=== PATIENT | female | born 1945 | race Caucasian/White ===

== ENCOUNTER → 2019-04-05 10:23 | Outpatient (CLI) | payer MEDICARE, SELFPAY ==
[2015-09-26 11:33] VITALS: BMI 45.8
[2019-04-05 11:25] LABS: Amphetamine Urine VISTA NEGATIVE (<1000 ng/mL); Barbiturate Urine VISTA NEGATIVE (< 200 ng/mL); Benzodiazepine Urine VISTA NEGATIVE (< 200 ng/mL); Cocaine Urine VISTA NEGATIVE (< 300 ng/mL); Ecstacy Urine VISTA NEGATIVE (< 500 ng/mL); Methadone Urine VISTA NEGATIVE (< 300 ng/mL); PCP Urine VISTA NEGATIVE (< 25 ng/mL); THC Urine VISTA NEGATIVE (< 50 ng/mL); Vista UDS pH Range 6
== END ==
PROVIDERS: Family Provider Internal Medicine; PCP Internal Medicine; Referring Provider Anesthesiology Pain Medicine; Visit Provider Anesthesiology Pain Medicine
DX: F11.20 Opioid dependence, uncomplicated (principal)
CPT/HCPCS: 80307

== ENCOUNTER 2019-11-30 12:15 | Outpatient (RCR) | payer MEDICARE, SELFPAY ==
[2019-11-30 13:35] VITALS: BP 117/60; PULSE 75; RESP 18; TEMP 36.5; BMI 42.3
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
== END 2019-11-30 23:59 ==
LOC: WC 12:15
PROVIDERS: Family Provider Internal Medicine; PCP Internal Medicine; Visit Provider Podiatrist
DX: E11.622 Type 2 diabetes mellitus with other skin ulcer (principal); L97.812 Non-pressure chronic ulcer of other part of right lower leg with fat layer exposed; E11.42 Type 2 diabetes mellitus with diabetic polyneuropathy; R60.0 Localized edema; I87.2 Venous insufficiency (chronic) (peripheral); E11.51 Type 2 diabetes mellitus with diabetic peripheral angiopathy without gangrene; Z79.4 Long term (current) use of insulin; Z79.899 Other long term (current) drug therapy
CPT/HCPCS: 11042; 11045; 99213; G0463

== ENCOUNTER 2019-12-29 10:30 | Outpatient (RCR) | payer MEDICARE, SELFPAY ==
[2019-12-01 01:10] VITALS: BP 117/60; PULSE 75; RESP 18; TEMP 36.5
--- NOTE | 2019-12-08 07:49 | VDLE_ITS ---
Reason For Study: Leg wound RIGHT LEFT CFV is compressible, spontaneous, phasic, CFV is compressible, spontaneous, phasic, competent and demonstrates normal competent, and demonstrates normal augmentation. augmentation. FV is compressible, spontaneous, phasic, FV is compressible, spontaneous, phasic, competent and demonstrates normal competent and demonstrates normal augmentation. augmentation. POP V is compressible, spontaneous, phasic, POP V is compressible, spontaneous, phasic, competent and demonstrates normal competent and demonstrates normal augmentation. augmentation. T/P Trunk is compressible. T/P Trunk is compressible. Unable to visualize calf veins due to open PTV is compressible. wounds and bandages. LT PerV is compressible. Unable to check competence in GSV below knee SFJ is INCOMPETENT and measures 0.66 x 0.78 and SSV. cm. SFJ is competent and measures 0.84 x 0.83 cm. GSV proximal thigh measures 0.73 x 0.84 cm. GSV proximal thigh measures 0.79 x 0.82 cm. GSV at knee measures 0.50 x 0.56 cm. GSV at knee measures 0.48 x 0.49 cm. GSV is competent throughout. Procedure SSV proximal calf is INCOMPETENT for greater Exam performed in department. than 0.5 seconds and measures 0.16 x 0.20 cm. A preliminary report was called and/or faxed to . Interpretation Summary Deep veins of the lower extremities are bilaterally patent and compressible segmentally. There is no evidence of deep vein thrombosis on either side. Valvular competence appears intact within the proximal deep venous systems bilaterally. The deep veins in the right calf were not visualized due to the presence of wounds and bandages. The right sapheno-femoral junction is competent . The left sapheno-femoral junction is incompetent . The right great saphenous vein appears patent and competent above the knee, but was not visualized below the knee due to bandages. The left great saphenous vein is patent and competent segmentally. The right small saphenous vein was not visualized due to the presence of bandages. The left small saphenous vein is patent and incompetent. Ordering Physician: Shellie Owusu Referring Physician: Tio Mahoney Performed By: Elda Callejas RVT
--- NOTE | 2019-12-08 07:49 | ART_ITS ---
Reason For Study: Leg wound Procedure A bilateral lower extremity continuous wave Doppler with analog waveform analysis,segmental pressures,and ankle brachial indexes without exercise. Left Segmental Pressures Left posterior tibial artery = 142mmHg. Left dorsalis pedis artery = 140mmHg. Left digit = 97 mmHg. The left dorsalis pedis waveforms are triphasic. The left posterior tibial artery waveforms are triphasic. Right Segmental Pressures Right brachial= 139mmHg. Right posterior tibial artery = 138mmHg. Right dorsalis pedis artery = 141mmHg. Right digit = 105 mmHg. The right dorsalis pedis waveforms are triphasic. The right posterior tibial artery waveforms are triphasic. Indices The right ankle brachial index by the dorsalis pedis is 1.01. The right ankle brachial index by the posterior tibial artery is 0.99. The right digital-brachial index is 0.76. The left ankle brachial index by the dorsalis pedis is 1.01. The left ankle brachial index by the posterior tibial artery is 1.02. The left digital-brachial index is 0.70. Interpretation Summary Triphasic Doppler waveforms are noted at ankle level bilaterally. Pulse-volume recordings appear satisfactory at all levels bilaterally. Resting ankle-brachial indices are normal bilaterally. The right digital-brachial index is normal. The left digital-brachial index is low-normal. There is no evidence of significant arterial occlusive disease in the lower extremities bilaterally. Ordering Physician: Shellie Owusu Referring Physician: Tio Mahoney Performed By: Elda Callejas RVT
[2019-12-08 09:33] VITALS: BP 121/94; RESP 18; TEMP 36.9; BMI 42.3
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
[2019-12-15 10:31] VITALS: BP 98/52; PULSE 78; RESP 18; TEMP 36.3; BMI 42.3
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
[2019-12-22 10:55] VITALS: BP 99/43; PULSE 67; RESP 16; TEMP 36.9; BMI 42.3
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
[2019-12-29 10:36] VITALS: BP 130/60; PULSE 88; RESP 18; TEMP 36.3; BMI 42.3
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
== END 2019-12-31 23:59 ==
LOC: WC 10:30
PROVIDERS: Family Provider Internal Medicine; PCP Internal Medicine; Referring Provider Podiatrist; Visit Provider Podiatrist
DX: E11.622 Type 2 diabetes mellitus with other skin ulcer (principal); E11.51 Type 2 diabetes mellitus with diabetic peripheral angiopathy without gangrene; L97.812 Non-pressure chronic ulcer of other part of right lower leg with fat layer exposed; R60.0 Localized edema; E11.42 Type 2 diabetes mellitus with diabetic polyneuropathy; E11.610 Type 2 diabetes mellitus with diabetic neuropathic arthropathy
CPT/HCPCS: 11042; 11045; 93923; 93970

== ENCOUNTER 2020-01-26 09:15 | Outpatient (RCR) | payer MEDICARE, SELFPAY ==
[2020-01-01 01:01] VITALS: BP 130/60; PULSE 88; RESP 18; TEMP 36.3
[2020-01-05 14:25] VITALS: PULSE 91; RESP 20; TEMP 35.9; BMI 42.3
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
[2020-01-12 10:00] VITALS: BP 151/62; PULSE 89; RESP 18; TEMP 36.4; BMI 42.3
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
[2020-01-19 13:20] VITALS: BP 150/80; PULSE 96; RESP 18; TEMP 35.9; BMI 42.3
--- NOTE | 2020-01-19 15:15 | PCM.WC.PN ---
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 Status: Chronic Current Visit: Yes Code(s): L97.912 - Non-pressure chronic ulcer of unspecified part of right lower leg with fat layer exposed (2) Venous insufficiency (chronic) (peripheral) Status: Suspected Current Visit: Yes Code(s): I87.2 - Venous insufficiency (chronic) (peripheral) Comment: bilateral (3) Localized edema Status: Chronic Current Visit: Yes Code(s): R60.0 - Localized edema (4) Type 2 diabetes mellitus with diabetic polyneuropathy Status: Chronic Current Visit: Yes Code(s): E11.42 - Type 2 diabetes mellitus with diabetic polyneuropathy Type of Wound Date of Service: 01/19/20 Chief Complaint: Right leg ulcer History of Wound: This 74-year-old pleasant female with diabetic neuropathy is currently being treated for right Charcot foot and is continuing to wear a cam walker immobilization boot. She is seen today at the wound healing center for various right leg ulcers that has an onset of November 09, 2019 after she spilled hot tea on her leg. This is now a chronic ulceration that has delayed healing. She has been applying Santyl. She denies redness, odor, fever chill, nausea, vomiting or other signs of infection. It is tender to touch and a moderate level; 3/10. She would like to proceed with an injection for the debridement again today. She had an epidural today due to back pain and is sleepy. Progress of Wound: Improving - Physical Exam Vital Signs Temp Pulse Resp BP 96.6 F L 96 18 150/80 H 01/19/20 13:20 01/19/20 13:20 01/19/20 13:20 01/19/20 13:20 General: Alert, Oriented x3, Cooperative, No apparent distress Extremities: No cyanosis, Capillary Refill Less than 3 Seconds, No Calf Tenderness, Diminished Peripheral Pulses, Edema Skin: Ulcer/ Wound - No purulence, erythema demonstrated little to no infection. There is full epithelialization of the plantar medial ulcer site. There is peripheral epithelialization noted to the remaining lateral leg ulcer site and the wound bed is granular and healthy with reduced fibrous tissue. Her peripheral skin is atrophic and hairless Wound Measurements and Assessment WC - Nurse 1 - General Ulcer Measurement Start: 01/05/20 14:25 Freq: Status: Active Protocol: Activity Type Activity Date Activity User E-Sign Co-Sign Detail Recorded Client Recorded Date Recorded By Document 01/19/20 13:20 [facility] [id number] 01/19/20 13:30 [facility] 01/19/20 13:20 Wound Center Nurse 1 [Ulcer Assessment] 2-right medial leg -Combined with other wound No -Current Size (cm) - Length 0.1 -Current Size (cm) - Width 0.1 -Current Size (cm) - Depth 0.1 -Total Square Cm 0.01 -Date of Last Picture (Recall this 01/19/20 field) -Photo Taken Yes -Epithelialization Large 67-100% -Tunneling No -Undermining/Tunneling No -Circular Undermining No -Exudate Amt None Present -Texture (Jenny-wound Skin Appearance) Assessed -Moisture (Jenny-wound Skin Appearance Assessed,Dry/ ) Scaly -Color (Jenny-wound Skin Appearance) Assessed -Temperature (Jenny-wound Skin No Abnormality Appearance) (Pt Warm) -Tenderness on Palpation (Jenny-wound No Skin Appearance) 1. Right lateral leg cluster -Combined with other wound No -Current Size (cm) - Length 5.6 -Current Size (cm) - Width 1 -Current Size (cm) - Depth 0.2 -Total Square Cm 5.6 -Date of Last Picture (Recall this 01/19/20 field) -Photo Taken Yes -Epithelialization None Present -Tunneling No -Undermining/Tunneling No -Circular Undermining No -Exudate Amt Small -Exudate Type Serosanguineous -Wound Margin Distinct, Outline Attached -Granulation Amt Medium (34-66%) -Granulation Quality Red -Slough/Fibrin Yes -Necrosis Amt Small (1-33%) -Necrotic Tissue Type Adherent Slough -Texture (Jenny-wound Skin Appearance) Assessed, Scarring -Moisture (Jenny-wound Skin Appearance Assessed,Dry/ ) Scaly -Color (Jenny-wound Skin Appearance) Assessed, Erythema -Temperature (Jenny-wound Skin No Abnormality Appearance) (Pt Warm) -Tenderness on Palpation (Jenny-wound Yes Skin Appearance) -Ulcer Cleansing Rinsed/ Irrigated with Saline -Foul Odor after Cleansing No -Anesthetic Used 5% Lidocaine Gel [Edema Assessment] -Lower Limb Edema Present Yes -Right Calf (cm) 43 -Right Ankle (cm) 24.2 WC - Nurse 2 - General Ulcer CM Notes Start: 01/05/20 14:25 Freq: Status: Active Protocol: Activity Type Activity Date Activity User E-Sign Co-Sign Detail Recorded Client Recorded Date Recorded By Document 01/19/20 13:37 [id number] 01/19/20 13:39 01/19/20 13:37 Wound Center Nurse 2 [Procedure/Treatment] 2-right medial leg -Correct Patient No -Correct Side, Site, Position No -Correct Procedure No -Procedure Performed No -Post Debridement Size (cm) - Length 0 -Post Debridement Size (cm) - Width 0 -Post Debridement Size (cm) - Depth 0 -Total Square Cm 0 -Wound/Ulcer Outcome Healed- Epithelialized 1. Right lateral leg cluster -Time 13:38 -Correct Patient Yes -Correct Side, Site, Position Yes -Correct Procedure Yes -Procedure Performed Yes -Type of Procedure Debridement -Clinical Debridement Subcutaneous -Post Debridement Size (cm) - Length 5.7 -Post Debridement Size (cm) - Width 1.1 -Post Debridement Size (cm) - Depth 0.2 -Total Square Cm 6.27 -Wound/Ulcer Outcome Not Healed -Ulcer Cleansing Rinsed/ Irrigated with Saline -Foul Odor after Cleansing No -Bioengineered Tissue No -Bleeding Controlled with Pressure -Offloading No -Treatment Response Procedure Tolerated Well [See Physician Procedure note for Specifics] Pain Scale: 0-10 Numeric [Pain] -Is Patient Pain Free? Yes Musculoskeletal: No Tenderness to Palpation of Joints or Extremities, Muscle Wasting Psych/Mental Status: Normal Affect, Appropriate Debridement Note Post-Debridement Measurements/Treatment WC - Nurse 2 - General Ulcer CM Notes Start: 01/05/20 14:25 Freq: Status: Active Protocol: Activity Type Activity Date Activity User E-Sign Co-Sign Detail Recorded Client Recorded Date Recorded By Document 01/05/20 14:55 [id number] 01/05/20 15:01 Document 01/12/20 10:42 [id number] 01/12/20 10:43 Document 01/19/20 13:37 [id number] 01/19/20 13:39 01/05/20 01/12/20 01/19/20 14:55 10:42 13:37 Wound Center Nurse 2 2-right medial leg -Time 14:59 10:42 -Correct Patient Yes Yes No -Correct Side, Site, Position Yes Yes No -Correct Procedure Yes Yes No -Procedure Performed Yes Yes No -Type of Procedure Debridement Debridement -Clinical Debridement Subcutaneous Subcutaneous -Post Debridement Size (cm) - Length 1.0 0.5 0 -Post Debridement Size (cm) - Width 1.5 0.5 0 -Post Debridement Size (cm) - Depth 0.1 0.1 0 -Total Square Cm 1.50 0.25 0 -Wound/Ulcer Outcome Not Healed Not Healed Healed- Epithelialized -Ulcer Cleansing Rinsed/ Rinsed/ Irrigated with Irrigated with Saline Saline -Foul Odor after Cleansing No No -Bioengineered Tissue No No -Bleeding Controlled with Pressure Pressure -Offloading No No -Treatment Response Procedure Procedure Tolerated Well Tolerated Well 1. Right lateral leg cluster -Time 15:00 10:42 13:38 -Correct Patient Yes Yes Yes -Correct Side, Site, Position Yes Yes Yes -Correct Procedure Yes Yes Yes -Procedure Performed Yes Yes Yes -Type of Procedure Debridement Debridement Debridement -Clinical Debridement Subcutaneous Subcutaneous Subcutaneous -Post Debridement Size (cm) - Length 7 6.8 5.7 -Post Debridement Size (cm) - Width 1.7 1.2 1.1 -Post Debridement Size (cm) - Depth 0.1 0.1 0.2 -Total Square Cm 11.9 8.16 6.27 -Wound/Ulcer Outcome Not Healed Not Healed Not Healed -Ulcer Cleansing Rinsed/ Rinsed/ Rinsed/ Irrigated with Irrigated with Irrigated with Saline Saline Saline -Foul Odor after Cleansing No No No -Bioengineered Tissue No No No -Bleeding Controlled with Pressure Pressure Pressure -Offloading No No No -Treatment Response Procedure Procedure Procedure Tolerated Well Tolerated Well Tolerated Well Pain Scale: 0-10 Numeric Is Patient Pain Free? Yes Yes Yes Wound debrided: leg lateral Laterality: Right Wound Grade/Stage: grade 1 Type of Debridement: Excisional debridement Anesthesia Used: 5% Lidocaine Gel Depth: in the subcutaneous layer Percentage of wound debrided: 100 Instrument Used: #15 blade Tissue Removed: fibrous, devitalized subcutaneous, biofilm, slough Severity: Fat Layer Exposed Amount of bleeding with debridement: Mild Bleeding Controlled with: Pressure Patient tolerated procedure well Assessment/Plan Active Problems Chronic ulcer of right leg with fat layer exposed (Chronic) Localized edema (Chronic) Type 2 diabetes mellitus with diabetic polyneuropathy (Chronic) Assessment: Right leg ulcer -now chronic Osborn grade 1, no infection. Medial leg ulcer-healed today. Right leg edema. Venous insufficiency bilateral with superficial varicosities bilateral lower extremities. Right leg pain. Diabetic neuropathy. Right Charcot neuroarthropathy foot-managed at [facility] Plan: I reviewed and discussed her case. She was reassured no local signs of infection are noted. Subcutaneous excisional debridement was performed as noted in the clinical panel. Local anesthetic injection was administered today. I recommend changing this daily with Santyl applied in nickel thickness and cover with overlying gauze. This will likely run out over the next week and she can transition to hydrogel. I recommend compression management with the 2-layered Tubigrip, periodic elevation, and by avoiding idle standing or sitting. Noninvasive Arterial and duplex venous studies were obtained and analyzed. Discussed findings with patient. Venous insufficiency was found to left leg but not right leg. No peripheral arterial disease noted on exam studies. To keep pressure off the ulcer sites and use offloading boot. We discussed the application of advanced wound healing product which I recommend this at this time. It is medically necessary for limb salvage. Prior authorization will be initiated for epi-fix. This is currently being appealed in an expedited manner; a medical necessity letter was prepared. The indications, benefits, nature were discussed. To continue CircAid compression dressing to reduce leg edema and ultimately reduce pressure ulcer sites. A vein specialist referral will be considered if she continues have lack of healing for potential evaluation and intervention for superficial varicosities that may also be contributing to her ulcer healing status. To return to the wound healing center in 1 week or call sooner if she has any questions or concerns. I also encouraged her to properly control glycemic status and to take nutritional supplementation optimize healing. I answered all of her questions. In regards to her dermatitis. I advised her to continue to apply Eucerin to the leg to skin dryness, and to follow-up with primary care physician. I answered her questions. . Quality measures for 2019 reviewed: Reviewed today-pain status is noted and follow-up was recommended. Medication and allergy reconciliation was performed. Performed on 12/08/2019-influenza immunization status confirmed from August 2019, pneumonia vaccination was confirmed, advanced care plan was confirmed with living will on file, she is not a tobacco user, her elevated blood pressure of over 120/80 is noted and she was advised to follow-up with primary care physician. Her elevated body mass index of 42.4 is also noted she will follow-up with her primary care physician. She was educated that diet and exercise will also help with her medical management.
[2020-01-26 09:30] VITALS: BP 123/56; PULSE 76; RESP 20; TEMP 36.7; BMI 42.3
--- NOTE | 2020-01-26 10:20 | PN.PCM_ITS ---
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 Status: Chronic Current Visit: Yes Code(s): L97.912 - Non-pressure chronic ulcer of unspecified part of right lower leg with fat layer exposed (2) Venous insufficiency (chronic) (peripheral) Status: Suspected Current Visit: Yes Code(s): I87.2 - Venous insufficiency (chronic) (peripheral) Comment: bilateral (3) Localized edema Status: Chronic Current Visit: Yes Code(s): R60.0 - Localized edema (4) Type 2 diabetes mellitus with diabetic polyneuropathy Status: Chronic Current Visit: Yes Code(s): E11.42 - Type 2 diabetes ivone litus with diabetic polyneuropathy Type of Wound Date of Service: 01/26/20 Chief Complaint: Right leg ulcer History of Wound: This 74-year-old pleasant female with diabetic neuropathy is currently being treated for right Charcot foot and is continuing to wear a cam walker immobilization boot. She is seen today at the wound healing center for various right leg ulcers that has an onset of November 09, 2019 after she spilled hot tea on her leg. This is now a chronic ulceration that has delayed healing. She has been applying Santyl. She denies redness, odor, fever chill, nausea, vomiting or other signs of infection. It is tender to touch and a moderate level; 3/10. She would like to proceed with an injection for the debridement again today. She would like to proceed with advanced wound healing application today. Progress of Wound: Improving - Physical Exam Vital Signs Temp Pulse Resp BP 98.1 F 76 20 H 123/56 H 01/26/20 09:30 01/26/20 09:30 01/26/20 09:30 01/26/20 09:30 General: Alert, Oriented x3, Cooperative, No apparent distress Extremities: No cyanosis, Capillary Refill Less than 3 Seconds, No Calf Tenderness, Diminished Peripheral Pulses, Edema Skin: Ulcer/ Wound - There is no purulence, erythema, streaking, odor, infection. The adjacent skin is hairless and atrophic. The previous medial leg ulcer site remains healed. Wound Measurements and Assessment WC - Nurse 1 - General Ulcer Measurement Start: 01/05/20 14:25 Freq: Status: Active Protocol: Activity Type Activity Date Activity User E-Sign Co-Sign Detail Recorded Client Recorded Date Recorded By Document 01/26/20 09:30 DL [id number] 01/26/20 09:31 DL 01/26/20 09:30 Wound Center Nurse 1 [Ulcer Assessment] 1. Right lateral leg cluster -Current Size (cm) - Length 4.4 -Current Size (cm) - Width 0.7 -Current Size (cm) - Depth 0.1 -Total Square Cm 3.08 -Photo Taken No -Exudate Amt Small -Exudate Type Serosanguineous -Wound Margin Distinct, Outline Attached -Granulation Amt Large (67-100%) -Granulation Quality Red -Necrosis Amt Small (1-33%) -Necrotic Tissue Type Adherent Slough -Structure Exposed N/A -Texture (Jenny-wound Skin Appearance) Scarring -Moisture (Jenny-wound Skin Appearance Dry/Scaly ) -Color (Jenny-wound Skin Appearance) No Abnormality -Temperature (Jenny-wound Skin No Abnormality Appearance) (Pt Warm) -Tenderness on Palpation (Jenny-wound No Skin Appearance) -Ulcer Cleansing Wound Cleanser -Foul Odor after Cleansing No -Anesthetic Used 4% Lidocaine Solution [Edema Assessment] -Right Calf (cm) 44 -Right Ankle (cm) 23 WC - Nurse 2 - General Ulcer CM Notes Start: 01/05/20 14:25 Freq: Status: Active Protocol: Activity Type Activity Date Activity User E-Sign Co-Sign Detail Recorded Client Recorded Date Recorded By Document 01/26/20 09:34 [id number] 01/26/20 09:36 [email or web address] 01/26/20 09:34 Wound Center Nurse 2 [Procedure/Treatment] 1. Right lateral leg cluster -Time 09:34 -Correct Patient Yes -Correct Side, Site, Position Yes -Correct Procedure Yes -Procedure Performed Yes -Type of Procedure Debridement -Clinical Debridement Subcutaneous -Post Debridement Size (cm) - Length 4.5 -Post Debridement Size (cm) - Width 0.7 -Post Debridement Size (cm) - Depth 0.1 -Total Square Cm 3.15 -Wound/Ulcer Outcome Not Healed -Ulcer Cleansing Rinsed/ Irrigated with Saline -Foul Odor after Cleansing No -Bioengineered Tissue Yes -Type of bioengineered Tissue EPIFIX -Expiration Date 10/01/24 -Product Lot Number [id number] -Percent Used 100 -Saline Lot Number [id number] -Bleeding Controlled with Pressure -Offloading No [See Physician Procedure note for Specifics] Pain Scale: 0-10 Numeric [Pain] -Is Patient Pain Free? Yes Musculoskeletal: No Tenderness to Palpation of Joints or Extremities, Muscle Wasting Neurological: Sensory exam intact to light touch and pain Psych/Mental Status: Normal Affect, Appropriate Debridement Note Post-Debridement Measurements/Treatment WC - Nurse 2 - General Ulcer CM Notes Start: 01/05/20 14:25 Freq: Status: Active Protocol: Activity Type Activity Date Activity User E-Sign Co-Sign Detail Recorded Client Recorded Date Recorded By Document 01/05/20 14:55 [id number] 01/05/20 15:01 Document 01/12/20 10:42 [id number] 01/12/20 10:43 Document 01/19/20 13:37 [id number] 01/19/20 13:39 Document 01/26/20 09:34 [id number] 01/26/20 09:36 01/05/20 01/12/20 01/19/20 14:55 10:42 13:37 Wound Center Nurse 2 2-right medial leg -Time 14:59 10:42 -Correct Patient Yes Yes No -Correct Side, Site, Position Yes Yes No -Correct Procedure Yes Yes No -Procedure Performed Yes Yes No -Type of Procedure Debridement Debridement -Clinical Debridement Subcutaneous Subcutaneous -Post Debridement Size (cm) - Length 1.0 0.5 0 -Post Debridement Size (cm) - Width 1.5 0.5 0 -Post Debridement Size (cm) - Depth 0.1 0.1 0 -Total Square Cm 1.50 0.25 0 -Wound/Ulcer Outcome Not Healed Not Healed Healed- Epithelialized -Ulcer Cleansing Rinsed/ Rinsed/ Irrigated with Irrigated with Saline Saline -Foul Odor after Cleansing No No -Bioengineered Tissue No No -Bleeding Controlled with Pressure Pressure -Offloading No No -Treatment Response Procedure Procedure Tolerated Well Tolerated Well 1. Right lateral leg cluster -Time 15:00 10:42 13:38 -Correct Patient Yes Yes Yes -Correct Side, Site, Position Yes Yes Yes -Correct Procedure Yes Yes Yes -Procedure Performed Yes Yes Yes -Type of Procedure Debridement Debridement Debridement -Clinical Debridement Subcutaneous Subcutaneous Subcutaneous -Post Debridement Size (cm) - Length 7 6.8 5.7 -Post Debridement Size (cm) - Width 1.7 1.2 1.1 -Post Debridement Size (cm) - Depth 0.1 0.1 0.2 -Total Square Cm 11.9 8.16 6.27 -Wound/Ulcer Outcome Not Healed Not Healed Not Healed -Ulcer Cleansing Rinsed/ Rinsed/ Rinsed/ Irrigated with Irrigated with Irrigated with Saline Saline Saline -Foul Odor after Cleansing No No No -Bioengineered Tissue No No No -Type of bioengineered Tissue -Expiration Date -Product Lot Number -Percent Used -Saline Lot Number -Bleeding Controlled with Pressure Pressure Pressure -Offloading No No No -Treatment Response Procedure Procedure Procedure Tolerated Well Tolerated Well Tolerated Well Pain Scale: 0-10 Numeric Is Patient Pain Free? Yes Yes Yes 01/26/20 09:34 Wound Center Nurse 2 2-right medial leg -Time -Correct Patient -Correct Side, Site, Position -Correct Procedure -Procedure Performed -Type of Procedure -Clinical Debridement -Post Debridement Size (cm) - Length -Post Debridement Size (cm) - Width -Post Debridement Size (cm) - Depth -Total Square Cm -Wound/Ulcer Outcome -Ulcer Cleansing -Foul Odor after Cleansing -Bioengineered Tissue -Bleeding Controlled with -Offloading -Treatment Response 1. Right lateral leg cluster -Time 09:34 -Correct Patient Yes -Correct Side, Site, Position Yes -Correct Procedure Yes -Procedure Performed Yes -Type of Procedure Debridement -Clinical Debridement Subcutaneous -Post Debridement Size (cm) - Length 4.5 -Post Debridement Size (cm) - Width 0.7 -Post Debridement Size (cm) - Depth 0.1 -Total Square Cm 3.15 -Wound/Ulcer Outcome Not Healed -Ulcer Cleansing Rinsed/ Irrigated with Saline -Foul Odor after Cleansing No -Bioengineered Tissue Yes -Type of bioengineered Tissue EPIFIX -Expiration Date 10/01/24 -Product Lot Number [id number] -Percent Used 100 -Saline Lot Number [id number] -Bleeding Controlled with Pressure -Offloading No -Treatment Response Pain Scale: 0-10 Numeric Is Patient Pain Free? Yes Wound debrided: leg Laterality: Right Type of Debridement: Excisional debridement Anesthesia Used: 5% Lidocaine Gel Depth: in the subcutaneous layer Percentage of wound debrided: 100 Instrument Used: #15 blade Tissue Removed: fibrous, devitalized subcutaneous, biofilm, slough Severity: Fat Layer Exposed Amount of bleeding with debridement: Mild Bleeding Controlled with: Pressure Patient tolerated procedure well Assessment/Plan Active Problems Chronic ulcer of right leg with fat layer exposed (Chronic) Localized edema (Chronic) Type 2 diabetes mellitus with diabetic polyneuropathy (Chronic) Assessment: Right leg ulcer -now chronic Osborn grade 1, no infection. Medial leg ulcer-remains healed. Right leg edema. Venous insufficiency bilateral with superficial varicosities bilateral lower extremities. Right leg pain. Diabetic neuropathy. Right Charcot neuroarthropathy foot-managed at [facility] ankle center Plan: I reviewed and discussed her case. She was reassured no local signs of infection are noted. Subcutaneous excisional debridement was performed as noted in the clinical panel. Local anesthetic injection was administered today. She was approved for application of advanced wound healing product, epi-fix today. Verbal consent was obtained and the product was applied according standard protocol. 100% of the product was utilized. This was secured in place with a wound veil and Steri-Strips. To keep this clean, dry, and intact until follow- up next week. A secondary dressing was applied. I recommend compression management with the 2-layered Tubigrip, periodic elevation, and by avoiding idle standing or sitting. Noninvasive Arterial and duplex venous studies were obtained and analyzed. Discussed findings with patient. Venous insufficiency was found to left leg but not right leg. No peripheral arterial disease noted on exam studies. To keep pressure off the ulcer sites and use offloading boot. We discussed the application of advanced wound healing product which I recommend this at this time. It is medically necessary for limb salvage. The indications of the advance wound healing product was discussed including the benefits, goals, anticipated application, and anticipated healing time and management. To continue CircAid compression dressing to reduce leg edema and ultimately reduce pressure ulcer sites. A vein specialist referral will be considered if she continues have lack of healing for potential evaluation and intervention for superficial varicosities that may also be contributing to her ulcer healing status. To return to the wound healing center in 1 week or call sooner if she has any questions or concerns. I also encouraged her to properly control glycemic status and to take nutritional supplementation optimize healing. I answered all of her questions. In regards to her dermatitis. I advised her to continue to apply Eucerin to the leg to skin dryness, and to follow-up with primary care physician. I answered her questions. . Quality measures for 2019 reviewed: Reviewed today-pain status is noted and follow-up was recommended. Medication and allergy reconciliation was performed. Performed on 12/08/2019-influenza immunization status confirmed from August 2019, pneumonia vaccination was confirmed, advanced care plan was confirmed with living will on file, she is not a tobacco user, her elevated blood pressure of over 120/80 is noted and she was advised to follow-up with primary care physician. Her elevated body mass index of 42.4 is also noted she will follow- up with her primary care physician. She was educated that diet and exercise will also help with her medical management.
== END 2020-01-29 23:59 ==
LOC: WC 09:15
PROVIDERS: Family Provider Internal Medicine; PCP Internal Medicine; Referring Provider Podiatrist; Visit Provider Podiatrist
DX: E11.622 Type 2 diabetes mellitus with other skin ulcer (principal); E11.51 Type 2 diabetes mellitus with diabetic peripheral angiopathy without gangrene; L97.812 Non-pressure chronic ulcer of other part of right lower leg with fat layer exposed; R60.0 Localized edema; E11.610 Type 2 diabetes mellitus with diabetic neuropathic arthropathy; E11.42 Type 2 diabetes mellitus with diabetic polyneuropathy; I87.2 Venous insufficiency (chronic) (peripheral); M79.604 Pain in right leg
CPT/HCPCS: 11042; 15271; Q4186

== ENCOUNTER 2020-02-09 10:00 | Outpatient (RCR) | payer MEDICARE, SELFPAY ==
[2020-01-30 00:44] VITALS: BP 123/56; PULSE 76; RESP 20; TEMP 36.7
[2020-02-02 10:02] VITALS: BP 101/50; PULSE 74; RESP 20; TEMP 36.2; BMI 42.3
--- NOTE | 2020-02-02 10:59 | PCM.WC.PN ---
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 Status: Chronic Code(s): L97.912 - Non-pressure chronic ulcer of unspecified part of right lower leg with fat layer exposed (2) Venous insufficiency (chronic) (peripheral) Status: Suspected Code(s): I87.2 - Venous insufficiency (chronic) (peripheral) Comment: bilateral (3) Localized edema Status: Chronic Code(s): R60.0 - Localized edema (4) Type 2 diabetes mellitus with diabetic polyneuropathy Status: Chronic Code(s): E11.42 - Type 2 diabetes mellitus with diabetic polyneuropathy Type of Wound Date of Service: 02/02/20 Chief Complaint: Right leg ulcer History of Wound: This 74-year-old pleasant female with diabetic neuropathy is currently being treated for right Charcot foot and is continuing to wear a cam walker immobilization boot. She is seen today at the wound healing center for various right leg ulcers that has an onset of November 09, 2019 after she spilled hot tea on her leg. This is now a chronic ulceration that has delayed healing. She has been applying Santyl and then epi-fix. She is significant improvement this past week she thinks.. She denies redness, odor, fever chill, nausea, vomiting or other signs of infection. Progress of Wound: Improving - Physical Exam Vital Signs Temp Pulse Resp BP 97.2 F L 74 20 H 101/50 L 02/02/20 10:02 02/02/20 10:02 02/02/20 10:02 02/02/20 10:02 General: Alert, Oriented x3, Cooperative, No apparent distress Extremities: No cyanosis, Capillary Refill Less than 3 Seconds, No Calf Tenderness, Diminished Peripheral Pulses, Edema Skin: Ulcer/ Wound - No purulence, erythema, strain, odor, infection. There is significant peripheral epithelialization noted and only very minor subcutaneous tissue is exposed and there is also some hemorrhagic tissue. Her skin is hairless and atrophic. Wound Measurements and Assessment WC - Nurse 1 - General Ulcer Measurement Start: 02/02/20 10:02 Freq: Status: Active Protocol: Activity Type Activity Date Activity User E-Sign Co-Sign Detail Recorded Client Recorded Date Recorded By Document 02/02/20 10:02 DL [id number] 02/02/20 10:12 DL 02/02/20 10:02 Wound Center Nurse 1 [Ulcer Assessment] 1. Right lateral leg cluster -Current Size (cm) - Length 2.7 -Current Size (cm) - Width 0.2 -Current Size (cm) - Depth 0.1 -Total Square Cm 0.54 -Photo Taken No -Exudate Amt Small -Exudate Type Serosanguineous -Wound Margin Thickened -Granulation Amt Small (1-33%) -Granulation Quality [place] -Necrosis Amt Large (67-100%) -Necrotic Tissue Type Adherent Slough -Structure Exposed N/A -Texture (Jenny-wound Skin Appearance) Scarring -Moisture (Jenny-wound Skin Appearance Dry/Scaly ) -Color (Jenny-wound Skin Appearance) Rubor -Temperature (Jenny-wound Skin No Abnormality Appearance) (Pt Warm) -Tenderness on Palpation (Jenny-wound No Skin Appearance) -Ulcer Cleansing Wound Cleanser -Foul Odor after Cleansing No -Anesthetic Used 4% Lidocaine Solution [Edema Assessment] -Right Calf (cm) 41.4 -Right Ankle (cm) 22.8 WC - Nurse 2 - General Ulcer CM Notes Start: 02/02/20 10:02 Freq: Status: Active Protocol: Activity Type Activity Date Activity User E-Sign Co-Sign Detail Recorded Client Recorded Date Recorded By Document 02/02/20 10:26 ANDREA [id number] 02/02/20 10:30 ANDREA 02/02/20 10:26 Wound Center Nurse 2 [Procedure/Treatment] 1. Right lateral leg cluster -Time 10:27 -Correct Patient Yes -Correct Side, Site, Position Yes -Correct Procedure Yes -Procedure Performed Yes -Type of Procedure Debridement -Clinical Debridement Selective -Post Debridement Size (cm) - Length 3.0 -Post Debridement Size (cm) - Width 0.2 -Post Debridement Size (cm) - Depth 0.1 -Total Square Cm 0.60 -Wound/Ulcer Outcome Not Healed -Ulcer Cleansing Rinsed/ Irrigated with Saline -Foul Odor after Cleansing No -Bioengineered Tissue No -Bleeding Controlled with Pressure -Offloading No -Treatment Response Procedure Tolerated Well [See Physician Procedure note for Specifics] Pain Scale: 0-10 Numeric [Pain] -Is Patient Pain Free? Yes Musculoskeletal: No Tenderness to Palpation of Joints or Extremities, Muscle Wasting Neurological: Sensory exam intact to light touch and pain Psych/Mental Status: Normal Affect, Appropriate Debridement Note Post-Debridement Measurements/Treatment WC - Nurse 2 - General Ulcer CM Notes Start: 02/02/20 10:02 Freq: Status: Active Protocol: Activity Type Activity Date Activity User E-Sign Co-Sign Detail Recorded Client Recorded Date Recorded By Document 02/02/20 10:26 ANDREA [id number] 02/02/20 10:30 ANDREA 02/02/20 10:26 Wound Center Nurse 2 1. Right lateral leg cluster -Time 10:27 -Correct Patient Yes -Correct Side, Site, Position Yes -Correct Procedure Yes -Procedure Performed Yes -Type of Procedure Debridement -Clinical Debridement Selective -Post Debridement Size (cm) - Length 3.0 -Post Debridement Size (cm) - Width 0.2 -Post Debridement Size (cm) - Depth 0.1 -Total Square Cm 0.60 -Wound/Ulcer Outcome Not Healed -Ulcer Cleansing Rinsed/ Irrigated with Saline -Foul Odor after Cleansing No -Bioengineered Tissue No -Bleeding Controlled with Pressure -Offloading No -Treatment Response Procedure Tolerated Well Pain Scale: 0-10 Numeric Is Patient Pain Free? Yes Wound debrided: leg Laterality: Right Wound Grade/Stage: grade 1 Type of Debridement: Selective debridement Anesthesia Used: 5% Lidocaine Gel Depth: in the subcutaneous layer Percentage of wound debrided: 100 Instrument Used: #15 blade Tissue Removed: fibrous, devitalized subcuteaneous, biofilm, slough Severity: Fat Layer Exposed Amount of bleeding with debridement: Mild Bleeding Controlled with: Pressure Patient tolerated procedure well Assessment/Plan Assessment: Right leg ulcer -now chronic Osborn grade 1, no infection. Medial leg ulcer-remains healed. Right leg edema. Venous insufficiency bilateral with superficial varicosities bilateral lower extremities. Right leg pain. Diabetic neuropathy. Right Charcot neuroarthropathy foot-managed at foot [facility] ankle center Plan: I reviewed and discussed her case. She was reassured no local signs of infection are noted. Selective debridement was performed as noted in the clinical panel. Significant progress is made and I do not recommend application of advanced wound healing product today. She was advised to change dressing daily with hydrogel or remaining Santyl that she already has at home. To change the dressing every day to every other day at most. I recommend compression management with the 2-layered Tubigrip, periodic elevation, and by avoiding idle standing or sitting. Noninvasive Arterial and duplex venous studies were obtained and analyzed. Discussed findings with patient. Venous insufficiency was found to left leg but not right leg. No peripheral arterial disease noted on exam studies. To keep pressure off the ulcer sites and use offloading boot. To continue CircAid compression dressing to reduce leg edema and ultimately reduce pressure ulcer sites. A vein specialist referral will be considered if she continues have lack of healing for potential evaluation and intervention for superficial varicosities that may also be contributing to her ulcer healing status. To return to the wound healing center in 1 week or call sooner if she has any questions or concerns. I also encouraged her to properly control glycemic status and to take nutritional supplementation optimize healing. I answered all of her questions. . Quality measures for 2019 reviewed: Reviewed today-Medication and allergy reconciliation was performed. She denies falling the past year. Performed on 12/08/2019-influenza immunization status confirmed from August 2019, pneumonia vaccination was confirmed, advanced care plan was confirmed with living will on file, she is not a tobacco user, her elevated blood pressure of over 120/80 is noted and she was advised to follow-up with primary care physician. Her elevated body mass index of 42.4 is also noted she will follow-up with her primary care physician. She was educated that diet and exercise will also help with her medical management.
[2020-02-09 10:27] VITALS: BP 106/42; PULSE 73; RESP 18; TEMP 36.3; BMI 42.3
--- NOTE | 2020-02-09 13:09 | PCM.WC.PN ---
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 Status: Resolved Code(s): L97.912 - Non-pressure chronic ulcer of unspecified part of right lower leg with fat layer exposed (2) Venous insufficiency (chronic) (peripheral) Status: Suspected Code(s): I87.2 - Venous insufficiency (chronic) (peripheral) Comment: bilateral (3) Localized edema Status: Chronic Code(s): R60.0 - Localized edema (4) Type 2 diabetes mellitus with diabetic polyneuropathy Status: Chronic Code(s): E11.42 - Type 2 diabetes mellitus with diabetic polyneuropathy Type of Wound Date of Service: 02/09/20 Chief Complaint: Right leg ulcer History of Wound: This 74-year-old pleasant female with diabetic neuropathy is currently being treated for right Charcot foot and is continuing to wear a cam walker immobilization boot. She is seen today at the wound healing center for various right leg ulcers that has an onset of November 09, 2019 after she spilled hot tea on her leg. This is now a chronic ulceration that has delayed healing. She has been applying Santyl and then epi-fix. She is significant improvement this past week she thinks the site has healed. She denies redness, odor, fever chill, nausea, vomiting or other signs of infection. Progress of Wound: Healed - Physical Exam Vital Signs Temp Pulse Resp BP 97.3 F L 73 18 106/42 L 02/09/20 10:27 02/09/20 10:27 02/09/20 10:27 02/09/20 10:27 General: Alert, Oriented x3, Cooperative, No apparent distress Extremities: No cyanosis, Capillary Refill Less than 3 Seconds, No Calf Tenderness, Diminished Peripheral Pulses, Edema Skin: Ulcer/ Wound - Full epithelialization is noted to the leg and this ulcer site is healed. There is no purulence, erythema, streaking, odor, infection. Wound Measurements and Assessment WC - Nurse 1 - General Ulcer Measurement Start: 02/02/20 10:02 Freq: Status: Active Protocol: Activity Type Activity Date Activity User E-Sign Co-Sign Detail Recorded Client Recorded Date Recorded By Document 02/09/20 10:27 [facility] [id number] 02/09/20 10:29 [facility] 02/09/20 10:27 Wound Center Nurse 1 [Ulcer Assessment] 1. Right lateral leg cluster -Combined with other wound No -Current Size (cm) - Length 0.1 -Current Size (cm) - Width 0.1 -Current Size (cm) - Depth 0.1 -Total Square Cm 0.01 -Date of Last Picture (Recall this 02/09/20 field) -Photo Taken Yes -Epithelialization Large 67-100% -Tunneling No -Undermining/Tunneling No -Circular Undermining No -Exudate Amt None Present -Texture (Jenny-wound Skin Appearance) Assessed, Scarring -Moisture (Jenny-wound Skin Appearance Assessed,Dry/ ) Scaly -Color (Jenny-wound Skin Appearance) Assessed -Temperature (Jenny-wound Skin No Abnormality Appearance) (Pt Warm) -Tenderness on Palpation (Jenny-wound No Skin Appearance) -Ulcer Cleansing Rinsed/ Irrigated with Saline -Foul Odor after Cleansing No -Anesthetic Used 5% Lidocaine Gel [Edema Assessment] -Lower Limb Edema Present Yes -Right Calf (cm) 45.8 -Right Ankle (cm) 24.5 WC - Nurse 2 - General Ulcer CM Notes Start: 02/02/20 10:02 Freq: Status: Active Protocol: Activity Type Activity Date Activity User E-Sign Co-Sign Detail Recorded Client Recorded Date Recorded By Document 02/09/20 10:50 ANDREA [id number] 02/09/20 10:51 02/09/20 10:50 Wound Center Nurse 2 [Procedure/Treatment] 1. Right lateral leg cluster -Correct Patient No -Correct Side, Site, Position No -Correct Procedure No -Procedure Performed No -Post Debridement Size (cm) - Length 0 -Post Debridement Size (cm) - Width 0 -Post Debridement Size (cm) - Depth 0 -Total Square Cm 0 -Wound/Ulcer Outcome Healed- Epithelialized [See Physician Procedure note for Specifics] Pain Scale: 0-10 Numeric [Pain] -Is Patient Pain Free? Yes Musculoskeletal: No Tenderness to Palpation of Joints or Extremities Neurological: Sensory exam intact to light touch and pain Psych/Mental Status: Normal Affect, Appropriate Debridement Note Post-Debridement Measurements/Treatment - Nurse 2 - General Ulcer CM Notes Start: 02/02/20 10:02 Freq: Status: Active Protocol: Activity Type Activity Date Activity User E-Sign Co-Sign Detail Recorded Client Recorded Date Recorded By Document 02/02/20 10:26 ANDREA [id number] 02/02/20 10:30 Document 02/09/20 10:50 [id number] 02/09/20 10:51 JF 02/02/20 02/09/20 10:26 10:50 Wound Center Nurse 2 1. Right lateral leg cluster -Time 10:27 -Correct Patient Yes No -Correct Side, Site, Position Yes No -Correct Procedure Yes No -Procedure Performed Yes No -Type of Procedure Debridement -Clinical Debridement Selective -Post Debridement Size (cm) - Length 3.0 0 -Post Debridement Size (cm) - Width 0.2 0 -Post Debridement Size (cm) - Depth 0.1 0 -Total Square Cm 0.60 0 -Wound/Ulcer Outcome Not Healed Healed- Epithelialized -Ulcer Cleansing Rinsed/ Irrigated with Saline -Foul Odor after Cleansing No -Bioengineered Tissue No -Bleeding Controlled with Pressure -Offloading No -Treatment Response Procedure Tolerated Well Pain Scale: 0-10 Numeric Is Patient Pain Free? Yes Yes Wound debrided: leg Laterality: Right No debridement was completed today - healed Assessment/Plan Assessment: Right leg ulcer -healed today. Medial leg ulcer-remains healed. Right leg edema. Venous insufficiency bilateral with superficial varicosities bilateral lower extremities. Right leg pain. Diabetic neuropathy. Right Charcot neuroarthropathy foot-managed at foot and ankle center Plan: I reviewed and discussed her case. She was reassured no local signs of infection are noted. Debridement was not performed today because ulcer site has healed. She is advised to discontinue dressing changes. To monitor for reopening or signs of infection in which neither is noted today. Previously, noninvasive Arterial and duplex venous studies were obtained and analyzed. These findings were previously discussed with patient. Venous insufficiency was found to left leg but not right leg. No peripheral arterial disease noted on exam studies. Now that the ulcer site has healed, I do recommend she continues to continue CircAid compression dressings to reduce leg edema and ultimately reduce pressure on her leg skin. She was advised to keep skin integrity intact with daily moisturizing. To avoid soaking. She is discharged from the wound healing center at this time and was advised to follow-up as needed. I answered all of her questions. . Quality measures for 2019 reviewed: Reviewed today-Medication and allergy reconciliation was performed. She denies falling the past year. Performed on 12/08/2019-influenza immunization status confirmed from August 2019, pneumonia vaccination was confirmed, advanced care plan was confirmed with living will on file, she is not a tobacco user, her elevated blood pressure of over 120/80 is noted and she was advised to follow-up with primary care physician. Her elevated body mass index of 42.4 is also noted she will follow-up with her primary care physician. She was educated that diet and exercise will also help with her medical management.
== END 2020-02-29 23:59 ==
LOC: WC 10:00
PROVIDERS: Family Provider Internal Medicine; PCP Internal Medicine; Referring Provider Podiatrist; Visit Provider Podiatrist
DX: E11.622 Type 2 diabetes mellitus with other skin ulcer (principal); E11.42 Type 2 diabetes mellitus with diabetic polyneuropathy; R60.0 Localized edema; L97.812 Non-pressure chronic ulcer of other part of right lower leg with fat layer exposed; M79.604 Pain in right leg; I87.2 Venous insufficiency (chronic) (peripheral); E11.610 Type 2 diabetes mellitus with diabetic neuropathic arthropathy
CPT/HCPCS: 97597; 99212; G0463

== ENCOUNTER → 2023-09-25 | Outpatient (CLI) | payer MEDICARE, SELFPAY ==
--- NOTE | 2023-09-25 08:53 | ART_ITS ---
Reason For Study: PVD Procedure A bilateral lower extremity continuous wave Doppler with analog waveform analysis,segmental pressures,and ankle brachial indexes without exercise. Left Segmental Pressures Left posterior tibial artery = 143mmHg. Left dorsalis pedis artery = 133mmHg. Left digit = 118 mmHg. The left posterior tibial artery waveforms are triphasic. The left dorsalis pedis waveforms are triphasic. Right Segmental Pressures Right brachial= 117mmHg. Right posterior tibial artery = 150mmHg. Right dorsalis pedis artery = 131mmHg. Right digit = 91 mmHg. The right posterior tibial artery waveforms are triphasic. The right dorsalis pedis waveforms are triphasic. Indices The right ankle brachial index by the posterior tibial artery is 1.28. The right ankle brachial index by the dorsalis pedis is 1.12. The right digital-brachial index is 0.78. The left ankle brachial index by the posterior tibial artery is 1.22. The left ankle brachial index by the dorsalis pedis is 1.14. The left digital-brachial index is 1.01. VL/Lower Ext Art Exam w/o Exercis Interpretation Summary Triphasic Doppler waveforms are noted at ankle level bilaterally. Pulse-volume recordings appear satisfactory at all levels bilaterally. Resting ankle-brachial indices are norm al bilaterally. Digital-brachial indices are normal bilaterally. There is no evidence of significant arterial occlusive disease in the lower ext remities bilaterally. Ordering Physician: Humza Bro Referring Physician: Tio Mahoney Performed By: Luca Hirsch, RVT
== END | disposition home or self-care (01) ==
LOC: CVS 08:44
PROVIDERS: PCP Internal Medicine; Referring Provider Podiatrist; Visit Provider Podiatrist
DX: I73.9 Peripheral vascular disease, unspecified (principal)
CPT/HCPCS: 93923

== ENCOUNTER → 2025-07-07 | Outpatient (CLI) | payer MEDICARE, SELFPAY | END | disposition home or self-care (01) | LOC: LABSPEC 16:57 | PROVIDERS: PCP Internal Medicine; Visit Provider Podiatrist | DX: L03.032 Cellulitis of left toe (principal) | CPT/HCPCS: 87070; 87205 ==

== ENCOUNTER → 2025-07-19 | Outpatient (CLI) | payer MEDICARE, SELFPAY ==
[2025-07-19 11:04] LABS: SITE R Radial; VBG BASE EXCESS 5 mmol/L (-1.0-3.5); VBG PO2 63 mmHg (25-40); VBG SO2 93 % (50-70); VBG TCO2 31 mmol/L (23-33)
[2025-07-20 15:08] LABS: Angiotensin Convert Enzyme 81 U/L (14-82)
== END | disposition home or self-care (01) ==
LOC: PSN 10:10
PROVIDERS: PCP Internal Medicine; Referring Provider Internal Medicine Pulmonary Disease; Visit Provider Internal Medicine Pulmonary Disease
DX: R09.02 Hypoxemia (principal)
CPT/HCPCS: 36415; 36600; 82164; 82803

== ENCOUNTER → 2025-08-16 | Outpatient (CLI) | payer MEDICARE, SELFPAY ==
--- NOTE | 2025-08-16 14:36 | ECHOD_ITS ---
Reason For Study Reason For Study: EDGARDO Procedure This was a 2D Doppler, Color Flow transthoracic echocardiogram. The patient was scanned supine. Exam performed in department. Left Ventricle Normal LV size. Left ventricular systolic function is normal. The left ventricular ejection fraction is 65 %. Normal diastology for age. Right Ventricle Normal RV size. The RV free wall longitudinal strain was -13.8 % . Normal systolic function. Atria The left atrium is mildly enlarged. Normal right atrium. Mitral Valve The mitral valve chordae are thickened and/or calcified. Mild mitral annular calcification. Mild-Moderate (1-2+) mitral valve insufficiency. Tricuspid Valve Normal tricuspid valve. Mild (1+) tricuspid valve insufficiency. Pulmonary artery systolic pressure is 25 mmHg. Aortic Valve Trisinus/trileaflet aortic valve. Mild focal aortic valve calcification. Aortic sclerosis, no stenosis. Pulmonic Valve The pulmonic valve is not well visualized. Great Vessels Normal sized aortic root. Pericardium/Pleural Epicardial fat. No pericardial effusion. MMode/2D Measurements & Calculations LVIDd: 5.1 cm IVSd: 1.0 cm LVOT diam: 1.9 cm LVIDs: 3.2 cm LVPWd: 0.90 cm LVOT area: 2.7 cm2 RVDd: 3.8 cm FS: 38.3 % asc Aorta Diam: 2.8 cm LAV(MOD-bp): 63.3 ml LVAd ap4: 23.1 cm2 LAV(MOD-bp) Indexed: 33.3 ml/m2 LVLd ap4: 7.2 cm LAV(MOD-sp2): 67.0 ml EDV(MOD-sp4): 61.9 ml LAV(MOD-sp4): 60.6 ml EDV(sp4-el): 62.9 ml LVAs ap4: 11.4 cm2 LVLs ap4: 5.8 cm ESV(MOD-sp4): 20.1 ml ESV(sp4-el): 18.9 ml EF(MOD-sp4): 67.6 % EF(sp4-el): 70.0 % LVAd ap2: 23.5 cm2 SV(MOD-sp4): 41.9 ml SV(MOD-sp2): 42.8 ml LVLd ap2: 7.4 cm SI(MOD-sp4): 22.0 ml/m2 SI(MOD-sp2): 22.5 ml/m2 EDV(MOD-sp2): 62.5 ml EDV(sp2-el): 63.1 ml LVAs ap2: 11.4 cm2 LVLs ap2: 5.8 cm ESV(MOD-sp2): 19.7 ml ESV(sp2-el): 19.0 ml EF(MOD-sp2): 68.5 % SV(sp4-el): 44.0 ml Ao sinus diam: 3.2 cm LA A4 area: 22.6 cm2 LA dimension(2D): 4.3 cm RA A4 area: 16.2 cm2 TAPSE: 2.0 cm Time Measurements MV dec time: 0.23 sec Doppler Measurements & Calculations MV E max lei: 97.2 cm/sec Lat Peak E' Lei: 10.5 cm/sec Med Peak E' Lei: 11.3 cm/sec MV A max lei: 91.1 cm/sec E/E' lat: 9.2 E/E' med: 8.6 MV E/A: 1.1 MV V2 max: 114.1 cm/sec Ao V2 max: 187.5 cm/sec MV max P.2 mmHg MV dec slope: 418.9 cm/sec2 Ao max P.1 mmHg MV V2 mean: 83.8 cm/sec Ao V2 mean: 124.6 cm/sec MV mean P.0 mmHg Ao mean P.4 mmHg MV V2 VTI: 30.2 cm Ao V2 VTI: 46.9 cm AV (velocity ratio): 0.71 MVA(VTI): 3.0 cm2 COREY(I,D): 1.9 cm2 COREY(V,D): 2.0 cm2 LV V1 max: 138.6 cm/sec SV(LVOT): 90.2 ml PA V2 max: 97.8 cm/sec LV V1 max P.7 mmHg LV V1 mean P.5 mmHg LV V1 mean: 100.8 cm/sec LV V1 VTI: 33.1 cm TR max lei: 233.9 cm/sec TR max P.9 mmHg ECHO/Echo Complete Interpretation Summary The left ventricular ejection fraction is 65 %. The left atrium is mildly enlarged. Mild-Moderate (1-2+) mitral valve insufficiency. Mild (1+) tricuspid valve insufficiency. Aortic sclerosis, no stenosis. Ordering Physician: Thiago Gee V Referring Physician: Thiago Gee V Performed By: Melida Castillo RDCS
== END | disposition home or self-care (01) ==
LOC: CVS 14:23
PROVIDERS: PCP Internal Medicine; Referring Provider Internal Medicine Pulmonary Disease; Visit Provider Internal Medicine Pulmonary Disease
DX: J98.4 Other disorders of lung (principal); R09.02 Hypoxemia; G47.33 Obstructive sleep apnea (adult) (pediatric)
CPT/HCPCS: 93306

== ENCOUNTER → 2025-11-15 | Outpatient (CLI) | payer MEDICARE, SELFPAY | END | disposition home or self-care (01) | LOC: LABSPEC 15:45 | PROVIDERS: PCP Internal Medicine; Referring Provider Podiatrist; Visit Provider Podiatrist | DX: L03.031 Cellulitis of right toe (principal) | CPT/HCPCS: 87070; 87075; 87077; 87186; 87205 ==